=== PATIENT | male | born 1980 | race Caucasian/White ===

== ENCOUNTER 2020-07-14 14:55 | Emergency (ER) | payer OTHER ==
[2020-07-14 15:00] VITALS: TEMP 97.8
[2020-07-14 16:12] LABS: HCT 48.3 % (39.0-53.0); HGB 15.6 gm/dL (13.0-17.5); MCH 30.3 pg (25.0-35.0); MCHC 32.3 g/dL (31.0-37.0); MCV 93.9 fL (80.0-100.0); RBC 5.15 m/uL (4.30-5.90); RDW 12.4 % (11.5-15.5)
[2020-07-14 16:13] LABS: Basophils # (A) 0.1 k/uL (0-0.2); Basophils % (A) 1 %; Eosinophils # (A) 0.5 k/uL (0-0.7); Eosinophils % (A) 6 %; Lymphocytes % (A) 33 %; Mean Platelet Volume 7.3; Monocytes # (A) 0.5 k/uL (0-1.0); Monocytes % (A) 5 %; Neutrophils # (A) 4.9 k/uL (1.3-7.7); Neutrophils % (A) 54 %; Platelet Count 243 k/uL (150-450)
[2020-07-14 16:21] LABS: ALT 23 U/L (4-49); AST 18 U/L (17-59); African American GFR (CKD) >90 (>60 ml/min/1.73 sqM); Albumin 3.9 g/dL (3.5-5.0); Alkaline Phosphatase 53 U/L (38-126); Anion Gap 3 mmol/L; Blood Urea Nitrogen 10 mg/dL (9-20); Calcium 8.9 mg/dL (8.4-10.2); Carbon Dioxide 30 mmol/L (22-30); Chloride 104 mmol/L (98-107); Glucose 86 mg/dL (74-99); Non-African American GFR(CKD) >90 (>60 ml/min/1.73 sqM); Potassium 4.6 mmol/L (3.5-5.1); Sodium 137 mmol/L (137-145); Total Bilirubin 0.3 mg/dL (0.2-1.3)
--- NOTE | 2020-07-14 16:34 | US ---
EXAMINATION TYPE: US groin RT DATE OF EXAM: 07/14/2020 COMPARISON: NONE CLINICAL HISTORY: concern for inguinal hernia. Appears to be a hernia in the right groin at the patient's palpable lump. Peristalsing bowel visualiz ed with bulging with valsalva maneuver IMPRESSION: As above. Bowel containing right inguinal hernia is confirmed as suspected clinically.
--- NOTE | 2020-07-14 16:38 | ED ---
Male Urogenital HPI - General Chief complaint: Urogenital Stated complaint: poss hernia Time Seen by Provider: 07/14/20 15:17 Source: patient Mode of arrival: ambulatory Limitations: no limitations - History of Present Illness Initial comments: Patient 40-year-old male presenting to the emergency department with a chief complaint of groin pain. 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 Patient complains of occasional testicular pressure and right inguinal pain over the last few months but recently had had significant increase in pain. Patient reports yesterday the pain was 10/10 in the right groin region. He also reports feeling pressure in his testicles but denies any swelling or tenderness to the touch. Denies any nausea or vomiting. States he can feel a "lump" in the right inguinal region but it does not seem to be going into the testicle. He denies any constipation nausea or vomiting. - Related Data Previous Rx's Medication Instructions Recorded Ibuprofen [Motrin] 800 mg PO Q6HR #30 tab 07/14/20 Allergies Allergy/AdvReac Type Severity Reaction Status Date / Time No Known Allergies Allergy Verified 07/14/20 14:59 Review of Systems ROS Statement: Those systems with pertinent positive or pertinent negative responses have been documented in the HPI. ROS Other: All systems not noted in ROS Statement are negative. Past Medical History Past Medical History: No Reported History History of Any Multi-Drug Resistant Organisms: None Reported Past Surgical History: Hernia Repair Past Psychological History: No Psychological Hx Reported Smoking Status: Current every day smoker Past Alcohol Use History: Occasional Past Drug Use History: Marijuana General Exam Limitations: no limitations General appearance: alert, in no apparent distress Head exam: Present: atraumatic, normocephalic, normal inspection Eye exam: Present: normal appearance, PERRL, EOMI Pupils: Present: normal accommodation ENT exam: Present: normal exam, normal oropharynx, mucous membranes moist, TM's normal bilaterally, normal external ear exam Neck exam: Present: normal inspection, full ROM. Absent: tenderness Respiratory exam: Present: normal lung sounds bilaterally. Absent: respiratory distress, wheezes, rales Cardiovascular Exam: Present: regular rate, normal rhythm, normal heart sounds GI/Abdominal exam: Present: soft, tenderness (Right inguinal tenderness. Mild protrusion of the abdominal wall along the right inguinal ligament.), hernia (Suspicion for direct inguinal hernia). Absent: distended exam: Present: normal inspection. Absent: testicular tenderness, scrotal swelling Extremities exam: Present: normal inspection, full ROM. Absent: tenderness Back exam: Present: normal inspection, full ROM. Absent: tenderness Neurological exam: Present: alert, oriented X3 Psychiatric exam: Present: normal affect, normal mood Skin exam: Present: warm, dry, intact, normal color Course Vital Signs 07/14/20 07/14/20 07/14/20 14:56 15:59 16:00 Temperature 97.8 F Pulse Rate 98 86 Respiratory 16 18 18 Rate Blood Pressure 128/88 140/89 O2 Sat by Pulse 100 98 Oximetry 07/14/20 07/14/20 17:00 17:39 Temperature 97.8 F Pulse Rate 82 82 Respiratory 18 18 Rate Blood Pressure 133/90 133/90 O2 Sat by Pulse 98 Oximetry Medical Decision Making - Medical Decision Making Patient is a 40-year-old male presenting to the emergency department with a chief complaint of right groin pain. Exam patient does appear to have a small protrusion along the right inguinal canal. This has improved compared to yesterday. Ultrasound reveals a bowel containing right inguinal hernia. Patient was initially declined analgesia but he declined. CBC CMP and UA are unremarkable. Lactic is within normal limits. Once I placed the patient in Trendelenburg and gently pressed on her hernia, it appeared to reduce itself. P atient did report improvement in the discomfort. He was advised to follow-up with a general surgeon. Strict return parameters were thoroughly discussed the patient was arsenic and agreeable. Case discussed with physician. - Lab Data Result diagrams: 07/14/20 15:50 07/14/20 15:50 Lab Results 07/14/20 07/14/20 07/14/20 Range/Units 15:50 15:50 15:50 WBC 9.0 (3.8-10.6) k/uL RBC 5.15 (4.30-5.90) m/uL Hgb 15.6 (13.0-17.5) gm/dL Hct 48.3 (39.0-53.0) % MCV 93.9 (80.0-100.0) fL MCH 30.3 (25.0-35.0) pg MCHC 32.3 (31.0-37.0) g/dL RDW 12.4 (11.5-15.5) % Plt Count 243 (150-450) k/uL Neutrophils % 54 % Lymphocytes % 33 % Monocytes % 5 % Eosinophils % 6 % Basophils % 1 % Neutrophils # 4.9 (1.3-7.7) k/uL Lymphocytes # 3.0 (1.0-4.8) k/uL Monocytes # 0.5 (0-1.0) k/uL Eosinophils # 0.5 (0-0.7) k/uL Basophils # 0.1 (0-0.2) k/uL Sodium 137 (137-145) mmol/L Potassium 4.6 (3.5-5.1) mmol/L Chloride 104 (98-107) mmol/L Carbon Dioxide 30 (22-30) mmol/L Anion Gap 3 mmol/L BUN 10 (9-20) mg/dL Creatinine 0.77 (0.66-1.25) mg/dL Est GFR (CKD-EPI)AfAm >90 (>60 ml/min/1.73 sqM) Est GFR (CKD-EPI)NonAf >90 (>60 ml/min/1.73 sqM) Glucose 86 (74-99) mg/dL Plasma Lactic Acid Abe 1.8 (0.7-2.0) mmol/L Calcium 8.9 (8.4-10.2) mg/dL Total Bilirubin 0.3 (0.2-1.3) mg/dL AST 18 (17-59) U/L ALT 23 (4-49) U/L Alkaline Phosphatase 53 (38-126) U/L Total Protein 6.0 L (6.3-8.2) g/dL Albumin 3.9 (3.5-5.0) g/dL Urine Color Urine Appearance (Clear) Urine pH (5.0-8.0) Ur Specific [place] (1.001-1.035) Urine Protein (Negative) Urine Glucose (UA) (Negative) Urine Ketones (Negative) Urine Blood (Negative) Urine Nitrite (Negative) Urine Bilirubin (Negative) Urine Urobilinogen (<2.0) mg/dL Ur Leukocyte Esterase (Negative) Urine RBC (0-5) /hpf Urine WBC (0-5) /hpf Urine Mucus (None) /hpf 07/14/20 Range/Units 17:14 WBC (3.8-10.6) k/uL RBC (4.30-5.90) m/uL Hgb (13.0-17.5) gm/dL Hct (39.0-53.0) % MCV (80.0-100.0) fL MCH (25.0-35.0) pg MCHC (31.0-37.0) g/dL RDW (11.5-15.5) % Plt Count (150-450) k/uL Neutrophils % % Lymphocytes % % Monocytes % % Eosinophils % % Basophils % % Neutrophils # (1.3-7.7) k/uL Lymphocytes # (1.0-4.8) k/uL Monocytes # (0-1.0) k/uL Eosinophils # (0-0.7) k/uL Basophils # (0-0.2) k/uL Sodium (137-145) mmol/L Potassium (3.5-5.1) mmol/L Chloride (98-107) mmol/L Carbon Dioxide (22-30) mmol/L Anion Gap mmol/L BUN (9-20) mg/dL Creatinine (0.66-1.25) mg/dL Est GFR (CKD-EPI)AfAm (>60 ml/min/1.73 sqM) Est GFR (CKD-EPI)NonAf (>60 ml/min/1.73 sqM) Glucose (74-99) mg/dL Plasma Lactic Acid Abe (0.7-2.0) mmol/L Calcium (8.4-10.2) mg/dL Total Bilirubin (0.2-1.3) mg/dL AST (17-59) U/L ALT (4-49) U/L Alkaline Phosphatase (38-126) U/L Total Protein (6.3-8.2) g/dL Albumin (3.5-5.0) g/dL Urine Color Light Yellow Urine Appearance Clear (Clear) Urine pH 6.5 (5.0-8.0) Ur Specific [place] 1.011 (1.001-1.035) Urine Protein Negative (Negative) Urine Glucose (UA) Negative (Negative) Urine Ketones Negative (Negative) Urine Blood Negative (Negative) Urine Nitrite Negative (Negative) Urine Bilirubin Negative (Negative) Urine Urobilinogen <2.0 (<2.0) mg/dL Ur Leukocyte Esterase Moderate H (Negative) Urine RBC 1 (0-5) /hpf Urine WBC 1 (0-5) /hpf Urine Mucus Rare H (None) /hpf Disposition Clinical Impression: Right inguinal hernia, Right groin pain Disposition: HOME SELF-CARE Condition: Good Instructions (If sedation given, give patient instructions): Inguinal Hernia (ED), Inguinal Hernia Repair (DC) Additional Instructions: Follow-up with Dr. Siddiqi. Take prescribed medication as directed. Return to emergency department if symptoms worsen. Prescriptions: Ibuprofen [Motrin] 800 mg PO Q6HR #30 tab Is patient prescribed a controlled substance at d/c from ED?: No Referrals: Brenton Mas MD [Primary Care Provider] - 1-2 days Ashlyn Medina MD [STAFF PHYSICIAN] - 1-2 days Time of Disposition: 17:25
[2020-07-14 17:10] VITALS: RESP 18
[2020-07-14 17:24] LABS: Appearance,Urine Clear (Clear); Bilirubin,Urine Negative (Negative); Blood,Urine Negative (Negative); Color,Urine Light Yellow; Glucose,Urine (UA) Negative (Negative); Ketones,Urine Negative (Negative); Leukocyte Esterase,Urine Moderate (Negative); Mucus,Urine Rare /hpf; Nitrite,Urine Negative (Negative); PH, Urine 6.5 (5.0-8.0); Protein,Urine Negative (Negative); RBC,Urine 1 /hpf (0-5); Specific Gravity,Urine 1.011 (1.001-1.035); Urobilinogen,Urine <2.0 mg/dL (<2.0); WBC,Urine 1 /hpf (0-5)
[2020-07-14 17:49] VITALS: BP 133/90; PULSE 82
== END 2020-07-14 17:40 | disposition home or self-care (01) ==
LOC: EC 14:55
DX: K40.90 Unilateral inguinal hernia, without obstruction or gangrene, not specified as recurrent (principal); F17.200 Nicotine dependence, unspecified, uncomplicated
CPT/HCPCS: 36415; 80053; 81001; 83605; 85025; 99284

== ENCOUNTER 2020-11-15 18:36 | Emergency (ER) | payer OTHER ==
[2020-11-15] MEDS ORDERED: AMOXIC-POT CLAV 875MG STARTER PACK 2 TAB BTL PO STA (19:08)
[2020-11-15] MEDS ORDERED: IBUPROFEN 600 MG STARTER PACK 4 TAB BTL PO STA (19:08)
--- NOTE | 2020-11-15 19:28 | ED ---
Wound/Laceration HPI - General Chief Complaint: Wound/Laceration Stated Complaint: R Leg Lac Time Seen by Provider: 11/15/20 19:01 Source: patient Mode of arrival: wheelchair Limitations: no limitations - History of Present Illness Initial Comments: 40 year-old male patient presents to the emergency department for evaluation of right knee injury. Patient states about 30 minutes prior to arrival he was using a hatchet to cut wood when the hatchet struck his knee. He states that he was able to see the "knee cap". States he is able to bear weight able to fully bend the leg. He states he feels some tingling in his lower leg and foot. Tetanus vaccine was 2 years ago. He denies any other injuries. Patient denies any headache, neck pain, back pain, chest pain, shortness of breath, dizziness, weakness, abdominal pain, nausea, vomiting, or difficulties with bowel movements or urination. - Related Data Previous Rx's Medication Instructions Recorded Ibuprofen [Motrin] 800 mg PO Q6HR #30 tab 07/14/20 Amoxic-Pot Clav 875-125Mg 1 tab PO Q12HR #14 tablet 11/15/20 [Augmentin 875-125] Ibuprofen [Motrin] 600 mg PO Q8HR PRN #30 tab 11/15/20 Allergies Allergy/AdvReac Type Severity Reaction Status Date / Time No Known Allergies Allergy Verified 11/15/20 18:44 Review of Systems ROS Statement: Those systems with pertinent positive or pertinent negative responses have been documented in the HPI. ROS Other: All systems not noted in ROS Statement are negative. Past Medical History Past Medical History: No Reported History History of Any Multi-Drug Resistant Organisms: None Reported Past Surgical History: Hernia Repair Past Psychological History: No Psychological Hx Reported Smoking Status: Current every day smoker Past Alcohol Use History: Occasional Past Drug Use History: Marijuana General Exam Limitations: no limitations General appearance: alert, in no apparent distress, other (Physical well- developed, well-nourished adult male patient in no acute distress. Vital signs upon presentation are temperature 98.0F, pulse 89, respirations 16, blood pressure 163/99, pulse ox 100% on room air.) Eye exam: Present: normal appearance, PERRL, EOMI. Absent: scleral icterus, conjunctival injection, periorbital swelling ENT exam: Present: normal exam, normal oropharynx, mucous membranes moist Respiratory exam: Present: normal lung sounds bilaterally. Absent: respiratory distress, wheezes, rales, rhonchi, stridor Cardiovascular Exam: Present: regular rate, normal rhythm, normal heart sounds. Absent: systolic murmur, diastolic murmur, rubs, gallop, clicks Extremities exam: Present: full ROM, normal capillary refill, other (There is a 3cm laceration noted to the anterior knee overlying the patella. There is active bleeding. Soft tissue swelling. Skin is otherwise pink, warm, dry. Cap refills less than 3 seconds. Pedal pulses 2+ and equal bilaterally.). Absent: normal inspection, tenderness, pedal edema, joint swelling, calf tenderness Neurological exam: Present: alert, oriented X3, CN II-XII intact Psychiatric exam: Present: normal affect, normal mood Skin exam: Present: warm, dry, intact, normal color. Absent: rash Course Vital Signs 11/15/20 11/15/20 11/15/20 18:38 20:00 21:00 Temperature 98.0 F 97.6 F Pulse Rate 89 90 89 Respiratory 16 18 19 Rate Blood Pressure 163/99 162/98 159/100 O2 Sat by Pulse 100 100 100 Oximetry Procedures - Laceration Laceration #1 Consent Obtained: verbal consent Indication: laceration Site: lower extremity (Right knee) Size (cm): 3 Description: linear Depth: simple, single layer Anesthetic Used: lidocaine 1%, with epi Anesthesia Technique: local infiltration Amount (mls): 15 Pre-repair: irrigated extensively Type of Sutures: nylon (4-0, 3), vicryl (5-0, 3) Number of Sutures: 6 Technique: simple, interrupted Patient Tolerated Procedure: well, no complications Medical Decision Making - Medical Decision Making 40-year-old male patient presents to the emergency department today for evaluation of laceration to the right knee. Patient does state injury use chopping wood with a hatchet the hatchet hit his knee. Physical examination does reveal a 3 cm laceration to the anterior knee overlying the patella. He did have active bleeding. X-ray was obtained and showed soft tissue deformity no bony abnormality. Case was discussed with on-call digital product specialist Dr. Etienne who recommends washout and closure. He will follow up with patient in the office, patient is instructed to call the morning for an appointment. Dressing was applied. Patient was started on Augmentin. Return parameters were discussed in detail. He verbalizes understanding and agrees with this plan. - Radiology Data Radiology results: report reviewed, image reviewed 3 views of the right knee are obtained. Report was reviewed in its entirety. Impression by Dr. Adorno shows laceration deformity. No fracture seen Disposition Clinical Impression: Laceration of right knee Disposition: HOME SELF-CARE Condition: Good Instructions (If sedation given, give patient instructions): Care For Your Stitches (ED), Laceration (ED) Additional Instructions: Keep dressing on until follow-up with orthopedics. Call the office in the morning for an appointment. Take medications as directed. Complete antibiotic prescription and full. Return to the emergency department for any new, worsening, or concerning symptoms. Prescriptions: Amoxic-Pot Clav 875-125Mg [Augmentin 875-125] 1 tab PO Q12HR #14 tablet Ibuprofen [Motrin] 600 mg PO Q8HR PRN #30 tab PRN Reason: Pain Is patient prescribed a controlled substance at d/c from ED?: No Referrals: Brenton Mas MD [Primary Care Provider] - 1-2 days Ariel Etienne DO [Doctor of Osteopathic Medicine] - 1-2 days Time of Disposition: 20:50
--- NOTE | 2020-11-15 19:36 | XR ---
EXAMINATION TYPE: XR knee complete RT DATE OF EXAM: 11/15/2020 COMPARISON: NONE HISTORY: Pain and laceration TECHNIQUE: 3 views FINDINGS: There is soft tissue deformity on the anterior aspect of the patella consistent with lacera tion. There is minimal soft tissue air. I see no fracture nor dislocation. Joint spaces are normal. IMPRESSION: Laceration deformity. No fracture seen.
[2020-11-15] MEDS ORDERED: LIDOCAINE 1% INJ 10MG/ML (20 ML MDV) SQ ONE (19:37)
[2020-11-15] MEDS ORDERED: BACITRACIN OINT 1 EACH PACKET TOPICAL ONE (19:37)
[2020-11-15] MEDS ORDERED: LIDOCAINE 1%-EPI 1:100,000 20 ML VIAL SQ STA (19:38)
[2020-11-15] MEDS ORDERED: ACET/COD 300 MG/30 MG STARTER PACK 6 TAB BTL PO STA (20:48)
[2020-11-15 21:02] VITALS: BP 159/100; PULSE 89; RESP 19; TEMP 97.6
== END 2020-11-15 21:02 | disposition home or self-care (01) ==
LOC: EC 18:36
DX: S81.011A Laceration without foreign body, right knee, initial encounter (principal); F17.200 Nicotine dependence, unspecified, uncomplicated; W27.0XXA Contact with workbench tool, initial encounter
CPT/HCPCS: 12002; 99283

== ENCOUNTER → 2023-02-23 | Outpatient (CLI) | payer OTHER ==
--- NOTE | 2023-03-01 00:02 | EST ---
Holter Monitor The patient was monitored for 48 hours. CLINICAL INFORMATION: Baseline rhythm is sinus mechanism with normal conduction. The average rate is 73 beats per minute, minimum 46, maximum 172 beats per minute. Ventricular ectopic activity was present in the form of rare single PVCs. Supraventricular ectopic activity was present in form of rare single PACs. No symptoms were reported. MMKIANNA / RAIN: [id number] / MTDD
== END | disposition home or self-care (01) ==
LOC: RADECHMAIN 07:41
PROVIDERS: ATTEND Family Medicine
DX: I49.3 Ventricular premature depolarization (principal)
CPT/HCPCS: 93225; 93226